=== PATIENT | female | born 1965 | race Two or more races ===

== ENCOUNTER 2017-05-11 08:53 | Outpatient (CLI) | payer OTHER ==
[~2017-05-11 08:53] MED LIST: ATIVAN1 MG; EFFEXOR XR150 MG; ENALAPRIL MALEAT5 MG PO; GLIPIZIDE10 MG PO; GLIPIZIDE5 MG PO; GLUMETZA1000 MG; HUMALOG100 U/ML; INTESTINEX680 MG PO; NEURONTIN600 MG; PROZAC10 MG PO; TRANXENE T-TA3.75 MG PO; TUSSIONEX PENNKI5 ML PO; ZANTAC150 MG PO
== END 2017-05-11 09:06 | disposition home or self-care (01) ==
LOC: TOM 08:53
DX: R41.2 Retrograde amnesia (principal)

== ENCOUNTER 2017-05-11 08:56 | Outpatient (CLI) | payer OTHER | END 2017-05-11 09:05 | disposition home or self-care (01) | LOC: RAD 08:56 | DX: M12.841 Other specific arthropathies, not elsewhere classified, right hand (principal); M19.041 Primary osteoarthritis, right hand ==

== ENCOUNTER 2019-01-14 16:47 | Emergency (ER) | payer OTHER ==
[~2019-01-14] VITALS: Ht 162.6 cm; Wt 127.0 kg
[2019-01-14] MEDS ORDERED: SYNJARDY 5-1,01 EACH (17:37)
[2019-01-14] MEDS ORDERED: MICARDIS20 MG (17:37)
[2019-01-14] MEDS ORDERED: CRESTOR5 MG (17:38)
[2019-01-14] MEDS ORDERED: LODINE300 MG (17:38)
== END 2019-01-14 19:22 | disposition home or self-care (01) ==
LOC: ER 16:47
DX: J45.998 Other asthma (principal)

== ENCOUNTER 2021-12-01 13:38 | Emergency (ER) | payer OTHER ==
[~2021-12-01] VITALS: Ht 160 cm; Wt 126.6 kg
[~2021-12-01 13:38] MED LIST changes: +CRESTOR5 MG; +LODINE300 MG; +MICARDIS20 MG; +SYNJARDY 5-1,01 EACH
[2021-12-01] MEDS ORDERED: SERTRALINE HCL25 MG PO (13:47)
[2021-12-01] MEDS ORDERED: MIRTAZAPINE30 MG PO (13:48)
[2021-12-01] MEDS ORDERED: GABAPENTIN600 MG PO (13:48)
[2021-12-01] MEDS ORDERED: METOPROLOL SUCC25 MG PO (13:48)
[2021-12-01] MEDS ORDERED: PROAIR HFA8.5 GM IH (13:48)
[2021-12-01] MEDS ORDERED: ROPINIROLE HCL1 MG PO (13:50)
[2021-12-01] MEDS ORDERED: ROSUVASTATIN CAL5 MG PO (13:50)
[2021-12-01] MEDS ORDERED: LORAZEPAM1 MG PO (13:50)
[2021-12-01] MEDS ORDERED: ROPINIROLE HCL0.5 MG PO (13:50)
[2021-12-01] MEDS ORDERED: LANTUS SOL100 UNIT/1 SQ (13:50)
[2021-12-01] MEDS ORDERED: VENLAFAXINE HC150 MG PO (13:51)
[2021-12-01] MEDS ORDERED: SYMBICORT 16010.2 GM IH (13:51)
[2021-12-01] MEDS ORDERED: HUMALOG JU100 UNIT/1 SQ (13:52)
== END 2021-12-01 17:24 | disposition home or self-care (01) ==
LOC: ER 13:38
DX: S52.122A Displaced fracture of head of left radius, initial encounter for closed fracture (principal); S80.12XA Contusion of left lower leg, initial encounter; W18.30XA Fall on same level, unspecified, initial encounter; Y93.9 Activity, unspecified; Y92.018 Other place in single-family (private) house as the place of occurrence of the external cause; Y99.9 Unspecified external cause status; E11.9 Type 2 diabetes mellitus without complications; Z79.4 Long term (current) use of insulin; I10 Essential (primary) hypertension; M79.7 Fibromyalgia; G47.30 Sleep apnea, unspecified; Z88.6 Allergy status to analgesic agent; Z88.8 Allergy status to other drugs, medicaments and biological substances

== ENCOUNTER 2025-03-04 11:06 | Emergency (ER) | payer OTHER ==
[~2025-03-04] VITALS: Ht 160 cm; Wt 104.3 kg
[~2025-03-04 11:06] MED LIST changes: +GABAPENTIN600 MG PO; +HUMALOG JU100 UNIT/1 SQ; +LANTUS SOL100 UNIT/1 SQ; +LORAZEPAM1 MG PO; +METOPROLOL SUCC25 MG PO; +MIRTAZAPINE30 MG PO; +PROAIR HFA8.5 GM IH; +ROPINIROLE HCL0.5 MG PO; +ROPINIROLE HCL1 MG PO; +ROSUVASTATIN CAL5 MG PO; +SERTRALINE HCL25 MG PO; +SYMBICORT 16010.2 GM IH; +VENLAFAXINE HC150 MG PO
[2025-03-04] MEDS ORDERED: 0.9 % SODIUM CHLORIDE 500 ML IV ONE (15:00)
[2025-03-04] MEDS ORDERED: CEFTRIAXONE SODIUM 1,000 MG VIAL IV ONE (15:00)
[2025-03-04] MEDS ORDERED: ONDANSETRON HCL 2 MG/ML VIAL IV ONE (15:00)
[2025-03-04] MEDS ORDERED: FAMOTIDINE/PF 20 MG/2 ML VIAL IV ONE (15:00)
[2025-03-04] MEDS ORDERED: FAMOTIDINE/PF 20 MG/2 ML VIAL ONE (15:26)
[2025-03-04] MEDS ORDERED: ONDANSETRON HCL 2 MG/ML VIAL ONE (15:26)
[2025-03-04] MEDS ORDERED: CEFTRIAXONE SODIUM 1,000 MG VIAL ONE (15:26)
[2025-03-04 16:28] LABS: BASO % 0.3 % (0.1-1.2); EOS # 0.23 (0.04-0.54); EOS % 2.4 % (0.7-7.0); LYMPH # 2.33 (1.18-3.74); LYMPH % 23.9 % (19.3-53.1); MEAN PLATELET VOLUME 9.00 fl (9.4-12.4); MONO # 0.86 (0.24-0.82); MONO % 8.8 % (4.7-12.5); NEUT # 6.28 (1.56-6.13); NEUT % 64.4 % (34.0-71.1); RED CELL DISTRIBUTION WIDTH 13.5 % (11.6-14.4)
[2025-03-04 16:35] LABS: INR 0.98
[2025-03-04 16:42] LABS: ALT/SGPT 26.0 U/L (12-78); AST/SGOT 13.0 U/L (15-37); BILIRUBIN TOTAL 0.27 mg/dL (0.3-1.2); BUN CREA RATIO 33.0 (7.0-25.0); CREATININE SERUM 0.61 mg/dL (0.55-1.02); GFR 100.74; GLOBULINA 4.1 G/DL (2.4-3.5); GLUCOSE FASTING 121.0 mg/dL (65-100); OSMOLALITY SERUM 291.0 MOSM/KG (275-295)
[2025-03-04 16:59] LABS: URINE APPEARANCE Clear; URINE BILIRRUBIN Negative (NEGATIVE); URINE BLOOD Negative; URINE COLOR Yellow; URINE KETONE Negative (NEGATIVE); URINE LEUKOCYTE Negative; URINE NITRATE Negative; URINE PROTEIN Negative (NEGATIVE); URINE UROBILINOGEN 0.2 E.U./dl
[2025-03-04 17:04] LABS: URINE BACTERIA 8.0 uL (0.0-1933); URINE EPITHELIAL CELLS 1.5 uL (0.0-38.8); URINE WBC 1.8 uL (0.0-23.2)
[2025-03-04 17:16] LABS: URINE CAST 0.14 uL (0.0-1.40); URINE GLUCOSE >=1000 MG/DL (NEGATIVE); URINE RBC 1.1 uL (0.0-20.8)
[2025-03-04] MEDS ORDERED: AMOX-CLAV 875-1 EAC1 PO (19:13)
[2025-03-04] MEDS ORDERED: CEPHALEXIN500 M1 PO (19:15)
== END 2025-03-04 20:56 ==
LOC: ER 11:07
PROVIDERS: General Practice
DX: T81.31XA Disruption of external operation (surgical) wound, not elsewhere classified, initial encounter (principal); R10.20 Pelvic and perineal pain unspecified side; I10 Essential (primary) hypertension; E11.9 Type 2 diabetes mellitus without complications; Z79.84 Long term (current) use of oral hypoglycemic drugs; Z88.2 Allergy status to sulfonamides; Z88.6 Allergy status to analgesic agent; Z88.9 Allergy status to unspecified drugs, medicaments and biological substances
CPT/HCPCS: 36415; 74177; Q9965